=== PATIENT | female | born 1955 | race Caucasian/White ===

== ENCOUNTER 2023-09-23 22:23 | Inpatient (IN) | payer OTHER, SELFPAY ==
[2023-09-23 18:09] VITALS: BP 157/77
--- NOTE | 2023-09-23 18:57 | ED.GENMED ---
History of Present Illness
<BRENT Billy - Last Filed: 09/23/23 21:46>
General
Chief Complaint: Skin Problem
Source: patient and family
Exam Limitations: none
Time Seen by Provider: 09/23/23 18:33
Nursing documentation reviewed up to this point in time: agreed with
Travel History
Have you had any contact with someone who has COVID-19?: No
Do you have any symptoms of coronavirus? Fever > 100 degrees, chills, cough, shortness of breath, sore throat, loss of taste or smell, muscle aches, or headache?: No
History of Present Illness
History of Present Illness:
Patient is a 5-year-old female who presents to the ER for evaluation. Patient had a cyst removed from her right lower back on Sunday by her family physician was started on amoxicillin. Yesterday sister noticed redness to the right back and also
today noticed redness to her abdomen. Patient does not feel well she feels achy and feverish so she has not taken her temperature. She also complains of a lot of pain in the tailbone region. Rash is not itchy. She denies any difficulty breathing.
Past History
<BRENT Billy - Last Filed: 09/23/23 21:46>
Past History
ED Past Medical History: GERD and Other (Peptic ulcer disease, colonic AVMs)
ED Past Surgical History: Gynecological and Tonsilectomy
Social History
Tobacco: Non-smoker
Alcohol: Occasional
Drug: None
Personal:
Living: with family
Employment: Retired
Family History
Family History: Other (Noncontributory)
Review of Systems
<BRENT Billy - Last Filed: 09/23/23 21:46>
Review of Systems
Allergies reviewed?: Yes
All Other Systems: ROS reviewed and negative except as documented in HPI and ROS
Constitutional: Reports chills
EENT: Reports no symptoms
Respiratory: Reports no symptoms
ABD/GI: Reports no symptoms
: Reports no symptoms
Skin: Reports rash
Neurological: Reports no symptoms
Hematologic/Lymphatic: Reports no symptoms
Psychiatric: Reports no symptoms
Phy Exam
<BRENT Billy - Last Filed: 09/23/23 21:46>
General Physical Exam
General Presentation: no apparent distress
General age: appears stated age
General Skin: warm and dry
General Habitus: normal
General Mental: alert
General Hydration: appears well hydrated
Neurological Exam
Neurological Exam: alert and oriented x3
Musculoskeletal Exam
Musculoskeletal Exam: full ROM
Skin Exam
Skin Exam: normal color, warm/dry and other (Patient with area of redness/mild induration to right lower back near recent cyst removal region no fluctuance no drainage however in addition scattered rash to abdomen and groin legs and also back which
is more consistent with drug rash,)
Psychiatric Exam
Psychiatric Exam: normal mood/affect and agitated
Course
<BRENT Billy - Last Filed: 09/23/23 21:46>
Orders/Labs/Results
Orders:
Orders
09/23/23 18:55
Cardiac Monitoring- Treatment ONCE
IV Insert/Care/Rem.- Treatment PRN
Diphenhydramine [Benadryl] 25 mg IV NOW STA
09/23/23 18:56
Ketorolac [Toradol] 15 mg IV NOW STA
09/23/23 19:04
Complete Blood Count/With Diff Urgent
Comprehensive Metabolic Panel Urgent
Lactic Acid Q4H
Comment: CANCEL 2nd LACTIC ACID IF 1st LACTIC ACID IS LESS THAN 2
09/23/23 19:14
Blood Culture Q30M
MAXIMILIAN Source: Blood/Venous
Specimen Description:
Blood Culture Q30M
MAXIMILIAN Source: Blood/Venous
Specimen Description:
09/23/23 19:19
0.9% Sodium Chloride 1000 ml [Nss] 1,000 ml IV BOLUS
Abnormal Lab Results
09/23/23
19:04
WBC 12.7 H 10^3/uL
(4.8-10.8)
MCHC 32.8 L g/dL
(33.0-37.0)
Abs Immat Gran (auto) 0.1 H 10^3/uL
(0-0.05)
Absolute Neuts (auto) 11.3 H 10^3/uL
(1.4-6.5)
Absolute Lymphs (auto) 0.5 L 10^3/uL
(1.2-3.4)
Neutrophils % 88.9 H %
(42.2-75.2)
Lymphocytes % 4.2 L %
(20.5-51.1)
BUN 22 H mg/dl
(7-17)
Creatinine 1.1 H mg/dL
(0.6-1.0)
Glucose 104 H mg/dl
(70-99)
09/23/23 19:04
09/23/23 19:04
Vital Signs
Initial and Last Documented VS:
Initial Vital Signs
Temp Pulse Resp BP Pulse Ox
99.9 F 80 18 157/77 93
09/23/23 18:09 09/23/23 18:09 09/23/23 18:09 09/23/23 18:09 09/23/23 18:09
Last Documented Vital Signs
Temp Pulse Resp BP Pulse Ox
99.9 F 77 20 122/68 93
09/23/23 18:09 09/23/23 20:00 09/23/23 20:00 09/23/23 19:15 09/23/23 20:00
<Pola Nicholas, DO - Last Filed: 09/23/23 19:00>
Orders/Labs/Results
Orders:
Orders
09/23/23 18:55
Cardiac Monitoring- Treatment ONCE
IV Insert/Care/Rem.- Treatment PRN
Diphenhydramine [Benadryl] 25 mg IV NOW STA
09/23/23 18:56
Ketorolac [Toradol] 15 mg IV NOW STA
09/23/23 19:04
Complete Blood Count/With Diff Urgent
Comprehensive Metabolic Panel Urgent
Lactic Acid Q4H
Comment: CANCEL 2nd LACTIC ACID IF 1st LACTIC ACID IS LESS THAN 2
09/23/23 19:14
Blood Culture Q30M
MAXIMILIAN Source: Blood/Venous
Specimen Description:
Blood Culture Q30M
MAXIMILIAN Source: Blood/Venous
Specimen Description:
09/23/23 19:19
0.9% Sodium Chloride 1000 ml [Nss] 1,000 ml IV BOLUS
Abnormal Lab Results
09/23/23
19:04
WBC 12.7 H 10^3/uL
(4.8-10.8)
MCHC 32.8 L g/dL
(33.0-37.0)
Abs Immat Gran (auto) 0.1 H 10^3/uL
(0-0.05)
Absolute Neuts (auto) 11.3 H 10^3/uL
(1.4-6.5)
Absolute Lymphs (auto) 0.5 L 10^3/uL
(1.2-3.4)
Neutrophils % 88.9 H %
(42.2-75.2)
Lymphocytes % 4.2 L %
(20.5-51.1)
BUN 22 H mg/dl
(7-17)
Creatinine 1.1 H mg/dL
(0.6-1.0)
Glucose 104 H mg/dl
(70-99)
09/23/23 19:04
09/23/23 19:04
Vital Signs
Initial and Last Documented VS:
Initial Vital Signs
Temp Pulse Resp BP Pulse Ox
99.9 F 80 18 157/77 93
09/23/23 18:09 09/23/23 18:09 09/23/23 18:09 09/23/23 18:09 09/23/23 18:09
Last Documented Vital Signs
Temp Pulse Resp BP Pulse Ox
99.9 F 77 20 122/68 93
09/23/23 18:09 09/23/23 20:00 09/23/23 20:00 09/23/23 19:15 09/23/23 20:00
<BRENT Billy - Last Filed: 09/23/23 21:46>
MDM/Problems Addressed
Differential Diagnosis Includes:
not limited to:cellulitis , allergic reaction
MDM/Problems Addressed:
Patient is a 5-year-old female who had a cyst excised from her right lower back on Sunday 6 days ago was placed on amoxicillin however sister noticed redness to the right lower back region yesterday and also redness to her abdomen. Patient presents
with area of induration and redness around the cyst removal however this area is very warm to palpation and in addition there is scattered rash throughout abdomen and groin legs which appears more drug related. Patient does have the chills myalgia
she also has complain tailbone pain. Case reviewed with ED physician evaluate patient will check labs.
2140: White blood cell count minimally elevated with looks of redness around recent abscess removal along with reaction to amoxicillin rash will admit we will treat with ancef .
<BRENT Billy - Last Filed: 09/23/23 21:46>
*Critical Care Note
Total Time (30-74mins, 75-104mins- exclusive of procedures): Not Applicable
ED Attending Note
<BRENT Billy - Last Filed: 09/23/23 21:46>
-
Portions of this chart may have been created with voice recognition software.� Occasional wrong word or��sound alike� substitutions may have occurred due to the inherent limitations of voice recognition software.
<Pola Nicholas DO - Last Filed: 09/23/23 19:00>
ED Attending Note
Patient seen and examined by attending physician: Yes
I performed the substantive portion of visit, reviewed & personally made and approve the management plan that is documented in note by myself or KARLOS.: Yes
ED Attending Note:
I have seen and evaluated the patient with a [id number] encounter. I have spoken to the advance practicer provider and involved in the medical history, the physical exam, medical decision making.
Evaluation and management service: agree unless noted differently below.
Results interpretation: agree unless noted differently below.
Focused HPI: 68-year-old female presenting with redness to her back worsening rash. Patient recent cyst removed and was placed on amoxicillin.
Physical exam: Significant amount of erythema surrounding right back where cyst was removed. Maculopapular rash in trunk and proximal extremities
Medical Decision Making: Discussed possible dress syndrome versus adverse medication reaction. Given the confluent erythema around the area, low threshold to admit for antibiotic
Discharge Plan
Departure
Patient Disposition: Admit
Date of Disposition: 09/23/23
Time of Disposition: 21:44
Admit to: Med/Surg
Admit to doctor: JENNIFERY
Presentation/result/management discussed w/ accepting MD/DO: Hospitalist
Patient with high blood pressure during this ER visit?: Yes
Condition: Fair
Covid-19: Not Applicable
Discharge Problem:
Cellulitis, Allergic reaction
Prescriptions:
No Action
pantoprazole 40 MG tablet,delayed release (DR/EC)
40 mg PO BID 30 Days Qty: 60 0RF
ferrous sulfate [FeroSul] 325 MG tablet
325 mg PO BID 30 Days Qty: 60 0RF
docusate sodium 100 MG capsule
100 mg PO BID 30 Days Qty: 60 0RF
Referrals:
Shantal Mills CRNP [Family Provider] -
Interventions
Interventions:
*Risk Screen - Suicide Last Done: 09/23/23 18:13
*General Assessment Last Done: 09/23/23 18:13
*Neglect/Abuse Screening Last Done: 09/23/23 18:13
*ED COVID-19 Vaccine History Last Done: 09/23/23 19:23
Discharge Date and Time
Print Language: FRISIAN
[2023-09-23] MEDS: TORADOL 15 MG IV (19:08)
[2023-09-23] MEDS: BENADRYL 25 MG IV (19:09)
[2023-09-23 19:13] LABS: % Basophils 0.2 % (0-2); % Eosinophils 3.1 % (0-6); % Immature Granulocytes 0.4 % (0-0.5); % Lymphocytes 4.2 % (20.5-51.1); % Monocytes 3.2 % (1.7-9.3); % Neutrophils 88.9 % (42.2-75.2); Absolute Eosinophils 0.4 10^3/uL (0-0.7); Absolute Immature Granulocytes 0.1 10^3/uL (0-0.05); Absolute Lymphocytes 0.5 10^3/uL (1.2-3.4); Absolute Monocytes 0.4 10^3/uL (0.1-0.6); Absolute Neutrophils 11.3 10^3/uL (1.4-6.5); Hemoglobin 13.1 g/dL (12.0-16.0); Mean Corp Hgb Conc. 32.8 g/dL (33.0-37.0); Mean Corpuscular Hgb 27.2 pg (27.0-31.0); Mean Corpuscular Volume 83.2 fL (81.0-99.0); Mean Platelet Volume 9.6 fL (7.4-10.4); Nucleated Red Blood Cells % 0 %; Platelet Count 192 10^3/uL (130-400); Red Blood Cell Count 4.81 10^6/uL (4.20-5.40); White Blood Cell Count 12.7 10^3/uL (4.8-10.8)
[2023-09-23 19:15] VITALS: BP 122/68
[2023-09-23 19:24] LABS: ALT (SGPT) 15 U/L (0-35); AST (SGOT) 18 U/L (14-36); Albumin 3.6 g/dl (3.5-5.0); Alkaline Phosphatase 78 U/L (38-126); Blood Urea Nitrogen 22 mg/dl (7-17); Calcium 9.2 mg/dl (8.4-10.2); Carbon Dioxide 26 mmol/L (22-30); Chloride 100 mmol/L (98-107); Glucose 104 mg/dl (70-99); Potassium 4.1 mmol/L (3.5-5.1); Sodium 135 mmol/L (135-145); Total Bilirubin 0.8 mg/dl (0.2-1.3); Total Protein 6.8 g/dl (6.3-8.2); eGFR 54.06
[2023-09-23 19:28] LABS: Lactic Acid 1.1 mmol/L (0.7-2.0)
[2023-09-23] MEDS: NSS 1000 IV (20:15)
[2023-09-23 21:00] VITALS: BP 110/53
--- NOTE | 2023-09-23 21:59 | HPS.HSE ---
Family Physician
-
Family Physician: BRENT Menon
Chief Complaint
-
evaluation of post surgical site of R Lower back
History of Present Illness
68F Non diabetic seen at ER for evaluation of post surgical site of R Lower back
- s/p cyst removal of Rt Lower back on 09/17/23
- seen by PCP and started on PO Amoxicillin
- Yesterday sister noticed redness to the right back and also today noticed redness to her abdomen.
- Denied pruritus
- She felt feverish but did not cjeck the Temp
- T 99.9 at ER
Medical History
Past Medical History
Past Medical History: Reports GERD and Other (PUDz )
Past Surgical History: Reports Other (cyst removed from her right lower back on 09/17/23 )
Social History
Tobacco: Non-smoker
Alcohol: Occasional
Personal:
Living: With Family
Family History
Family History: Not pertinent
Allergies / Home Medications
Allergies reflects when Allergies were last updated in [facility].
Home Medications with original date entered in [facility]
Allergy/Medication List:
Allergies
Allergy/AdvReac Type Severity Reaction Status Date / Time
No Known Allergies Allergy Verified 09/23/23 18:09
Home Medications
docusate sodium 100 mg capsule 100 mg PO BID 30 days ##60 02/02/18
ferrous sulfate 325 mg (65 mg iron) tablet (FeroSul) 325 mg PO BID 30 days ##60 02/02/18
pantoprazole 40 mg tablet,delayed release 40 mg PO BID 30 days #60 tabs 02/02/18
Review of Systems
-
Constitutional: Reports No Symptoms
EENT: Reports No Symptoms
Respiratory: Reports No Symptoms
Cardiac: Reports No Symptoms
Abdomen/GI: Reports No Symptoms
: Reports No Symptoms
Musculoskeletal: Reports No Symptoms
Skin: Reports See HPI and Rash (R lower back ); Denies Itching
Neurological: Reports No Symptoms
Endocrine: Reports No Symptoms
Hematologic/Lymphatic: Reports No Symptoms
Psych: Reports No Symptoms
Physical Exam
Vital Signs
Vital Signs
Temp Pulse Resp BP Pulse Ox
99.9 F 69 23 110/53 94
09/23/23 18:09 09/23/23 21:45 09/23/23 21:45 09/23/23 21:00 09/23/23 21:45
Physical Exam
General: No Apparent Distress, Comfortable and Conversant; No Chills
HEENT: NormoCephalic, Anicteric and Moist mucous membranes
Cardiac: S1/S2 and Regular Rhythm; No Tachycardia
Breast: Deferred by me
GI: Soft, Non Tender, Non Distended and Normal Bowel Sounds
Rectal: Deferred by Provider
Genito-urinary: Deferred by me
Musculoskeletal: No Edema
Skin: Other (Erytema and mild nduration to Rt lower back near recent cyst removal region Not fluctuance No drainage . Scattered rash to abdomen and groin legs and also back )
Neuro: AO x 3
Psych: Calm
Laboratory Results
-
09/23/23 19:04
09/23/23 19:04
Laboratory Results
Lactic Acid Cancelled 09/23/23 23:00
Total Bilirubin 0.8 mg/dl (0.2-1.3) 09/23/23 19:04
AST 18 U/L (14-36) 09/23/23 19:04
ALT 15 U/L (0-35) 09/23/23 19:04
Alkaline Phosphatase 78 U/L (38-126) 09/23/23 19:04
Data Reviewed
-
Lab Data: Labs Reviewed by me
Impression/Plan
-
Reviewed VS: 99.9 otherwise unremarkable POx 93 on RA
Data
WCC 12.7
Cr 1.1 - baseline 1.1
eGFR 54
BCx 2 sent
No Prior DH admission:
ASSESSMENT & PLAN
Pending Rx reconciliation
Probably acute drug eruption to amoxicillin causing scattered symmetric non pruritic urticaria rash to both abdomen plus bilateral groin adn proximal thighs and lower back
- associated Leukemoid reaction plus low grade fever
- DC Amoxicillin and ad to allergy list
- IV Benadryl PRN
I doubt SSTI of Rt lower back surgical site s/p removal cyst removal on 09/17/23
- BCx sent
- Empiric IV Vancomycin in place of Cefazolin in case cross sensitivity reaction to Cephalosporins and PCN till further eval by ID
- ID Consult
Underlying CKD3a
- stable Cr at 1.1
- Observe Cr
DVT Px: LMWH
Code: Full
IP MS
[2023-09-23 22:00] VITALS: BP 112/53
[2023-09-23] MEDS: VANCOCIN 200 IV ×2 (22:24→23:50)
[2023-09-23 23:08] VITALS: BP 107/56
--- NOTE | 2023-09-23 23:15 | PTCARENOTE ---
Received pt from ED into room 2136. Patient able to ambulate to bed. AAOx3. VSS. 3L O2 pox 93%. See assessment. Resting comfortably in bed, no complaints at this time.
[2023-09-23 23:36] VITALS: BMI 44.9
[2023-09-23 23:39] VITALS: BMI 44.9
--- NOTE | 2023-09-23 23:44 | PHA.VAN.IN ---
Assessment
- Assessment
Renal Function: Appears similar to baseline
Plan
- Plan
Initial / Loading Dose: SPLIT LOAD VANCO 2000MG
Monitoring: RANDOM 09/23 @0600
Pharmacokinetics Vancomycin I
- -
Patient Age: 68
Patient Sex: Female
Vancomycin Day #: 1
Indication: SSTI
Requesting Provider: DR. WRIGHT
Height / Weight:
Height 5 ft 4 in
Actual Weight 118.524 kg
IBW in k.7
Adjusted BW in k.2
Pertinent Past Medical History: POST OP R LOWER BACK CYST REMOVAL 09/17/23, OBESITY
- Vital Signs / Lab Results
Temp Pulse Resp BP Pulse Ox
98.2 F 69 20 107/56 93
09/23/23 23:08 09/23/23 23:08 09/23/23 23:08 09/23/23 23:08 09/23/23 23:08
Lab Results - Hematology
09/23/23
19:04
WBC 12.7 H
Lab Results - Chemistry
09/23/23
19:04
BUN 22 H
Creatinine 1.1 H
Albumin 3.6
09/23/23 09/23/23
19:04 23:00
Lactic Acid 1.1 Cancelled
[2023-09-24] MEDS: PROTONIX 40 MG PO (08:21)
[2023-09-24] MEDS: PEPCID 20 MG PO (08:21)
[2023-09-24 08:29] VITALS: BP 98/56
[2023-09-24 09:06] LABS: % Basophils 0.3 % (0-2); % Eosinophils 7.3 % (0-6); % Immature Granulocytes 0.4 % (0-0.5); % Lymphocytes 9.2 % (20.5-51.1); % Monocytes 4.8 % (1.7-9.3); Absolute Eosinophils 0.7 10^3/uL (0-0.7); Absolute Lymphocytes 0.9 10^3/uL (1.2-3.4); Absolute Monocytes 0.5 10^3/uL (0.1-0.6); Absolute Neutrophils 7.5 10^3/uL (1.4-6.5); Hematocrit 40.7 % (37.0-47.0); Hemoglobin 12.3 g/dL (12.0-16.0); Mean Corp Hgb Conc. 30.2 g/dL (33.0-37.0); Mean Corpuscular Hgb 26.6 pg (27.0-31.0); Mean Corpuscular Volume 88.1 fL (81.0-99.0); Mean Platelet Volume 10.2 fL (7.4-10.4); Nucleated Red Blood Cells % 0 %; Platelet Count 182 10^3/uL (130-400); Red Blood Cell Count 4.62 10^6/uL (4.20-5.40); Red Cell Dist. Width 14.2 % (11.5-14.5); White Blood Cell Count 9.6 10^3/uL (4.8-10.8)
--- NOTE | 2023-09-24 09:11 | CON.ID ---
Consultation
-
Date/Time Consultation Requested: September 23, 2023 2891
Date/Time Consultation Performed: September 24, 2023 0910
Requesting Provider: Dr. Lion Blanc
Performing Provider: Dr. Jayne Haque
Reason for Consultation: Likely acute drug eruption then STI
Chief Complaint / Past History
Chief Complaint
Rash.
History of Present Illness
68-year-old female without significant past medical history who recently underwent drainage of an epidermal cyst located on her right lower back by per PCP on September 17, 2023. She was placed on amoxicillin postprocedure to complete 12 days. On
September 21, she noted rash on her abdomen. Her sister noted rash on her back. Rash extended down to her thighs. Positive itching. Had low-grade temps. She came to the hospital yesterday. She received cefazolin in the ER then placed on IV
vancomycin. Patient reports she cannot recall ever having had penicillin in the past. She feels improved today. Itching is better. The rash is not worse.
Past History
Additional Past Medical History:
PUD
GERD
Class III obesity BMI 45
Allergy History:
No Known Allergies Allergy (Verified 09/23/23 18:09)
Medications Reviewed: Yes
Current Antibiotics:
Vancomycin
Social History
Tobacco: Non-Smoker
Alcohol: None
Drug: None
Family History
Family History: Not Pertinent
Review of Systems
Review of Systems
General: Negative Change in Appetite
HEENT: Negative Sinus Problems or Headache
Cardiovascular: Negative Chest Pain or Dyspnea
Respiratory: Negative Dyspnea or Cough
Gasteroenterology: Other (no diarrhea); Negative Nausea or Vomiting
Genital / Urological: Negative Dysuria or Flank Pain
Endocrine: Negative Weakness
Skin / Hair / Nails: Rash
Neurological: Negative Headache or Dizziness
All systems: All other systems were reviewed and were negative
Vital Signs
Temp Pulse Resp BP Pulse Ox
98.2 F 69 20 107/56 92
09/23/23 23:08 09/23/23 23:08 09/23/23 23:08 09/23/23 23:08 09/24/23 08:29
Physical Exam
Physical Exam
Constitutional: No Acute Distress
Eyes: No Conjunctival Hemorrhage and Sclera Anicteric
Cardiovascular: Regular Rate and S1/S2
Gastrointestinal: Soft, Non Tender, Non Distended and Normal Bowel Sounds
Genito-Urinary: Negative CVA Tenderness
Skin: Rash (Diffuse blanchable maculopapular rash lower back, abdomen to bilateral upper thighs)
Wound: Other (right lower back cyst without drainage, nontender, no warmth)
Lab / Diagnostic Study Results
Abs Immat Gran (auto) 0.1 10^3/uL (0-0.05) H 09/23/23 19:04
Absolute Neuts (auto) 11.3 10^3/uL (1.4-6.5) H 09/23/23 19:04
Absolute Lymphs (auto) 0.5 10^3/uL (1.2-3.4) L 09/23/23 19:04
Absolute Monos (auto) 0.4 10^3/uL (0.1-0.6) 09/23/23 19:04
Absolute Basos (auto) 0.0 10^3/uL (0-0.2) 09/23/23 19:04
Immature Gran % 0.4 % (0-0.5) 09/23/23 19:04
Neutrophils % 88.9 % (42.2-75.2) H 09/23/23 19:04
Lymphocytes % 4.2 % (20.5-51.1) L 09/23/23 19:04
Monocytes % 3.2 % (1.7-9.3) 09/23/23 19:04
Eosinophils % 3.1 % (0-6) 09/23/23 19:04
Basophils % 0.2 % (0-2) 09/23/23 19:04
Lactic Acid Cancelled 09/23/23 23:00
Microbiology Results
Micro:
09/23/23 19:14 Blood Culture - Pending
Blood/Venous
09/23/23 19:14 Blood Culture - Pending
Blood/Venous
09/23/23 23:38 MRSA Screen - Pending
Nose
Assessment / Plan
# Drug rash from amoxicillin
- Supportive care.
# Recent s/p drainage of epidermal cyst.
- No signs of infection.
- DC Vancomycin.
- Observe off abx.
Care Review
Plan reviewed with: Physician (Dr. Cecilio Jensen)
[2023-09-24 09:18] LABS: Blood Urea Nitrogen 22 mg/dl (7-17); Calcium 8.5 mg/dl (8.4-10.2); Carbon Dioxide 27 mmol/L (22-30); Chloride 104 mmol/L (98-107); Estimated Creatinine Clearance 74 ml/min; Glucose 83 mg/dl (70-99); Potassium 4.2 mmol/L (3.5-5.1); Sodium 139 mmol/L (135-145); eGFR > 60.00
[2023-09-24 09:21] LABS: Vancomycin Random 14.4 ug/ml
--- NOTE | 2023-09-24 10:52 | W.PN.HOSP.TC ---
Today's Communication/Plan
-
Monitor vital signs see plan
Supportive care for rash, as needed Benadryl
Observe off antibiotics
Spoke with ID, can be discharged from their standpoint
Discharge today
Time of discharge 36 minutes
Assessment / Plan
Assessment / Plan
General: No Apparent Distress, Comfortable and Conversant; No Chills
HEENT: NormoCephalic, Anicteric and Moist mucous membranes
Cardiac: S1/S2 and Regular Rhythm; No Tachycardia
GI: Soft, Non Tender, Non Distended and Normal Bowel Sounds
Musculoskeletal: No Edema
Skin: Other (Erytema and mild nduration to Rt lower back near recent cyst removal region Not fluctuance); scattered rash
Neuro: AO x 3
Psych: Calm
Rash likely 2/2 amoxicillin.
cw supportive care
scattered symmetric non pruritic urticaria rash to both abdomen plus bilateral groin adn proximal thighs and lower back
- associated Leukemoid reaction plus low grade fever
now leukocytosis improved. Blood culture drawn in ED notes pending. Spoke with infectious disease no further antibiotics needed. Patient can be discharged from ID standpoint
- DC Amoxicillin and ad to allergy list
- IV Benadryl PRN
no signs of surgical epidermal cyst removal infection
ID dc'ed vanc
Underlying CKD3a
- stable Cr
- Observe Cr
DVT Px: LMWH
Code: Full
Anticipated Discharge: Today
Subjective/Interval History
-
Date of Service: September 24, 2023
denies pain
Objective Data
-
Labs:
Laboratory Results
09/24/23 09/24/23
07:58 08:00
WBC 9.6
Hgb 12.3
Hct 40.7
Plt Count 182
Sodium 139
Potassium 4.2
Chloride 104
Carbon Dioxide 27
BUN 22 H
Creatinine 0.9
Glucose 83
Calcium 8.5
Vital Signs:
Vital Signs
Temp Pulse Resp BP Pulse Ox
98.2 F 69 20 107/56 92
09/23/23 23:08 09/23/23 23:08 09/23/23 23:08 09/23/23 23:08 09/24/23 08:29
I&O
09/23/23 09/24/23 09/25/23
06:59 06:59 06:59
Intake Total 0 / 0
Balance 0 / 0
--- NOTE | 2023-09-24 10:56 | W.DCSUMMARY ---
Discharge Summary
Discharge Data
Date of Admission: 09/23/23
Date of Discharge: 09/24/23
-
Pending Results: No
Hospital Course
68-year-old female with recent epidermal cyst drainage came to the hospital with diffuse drug rash which was likely thought was secondary to amoxicillin. Patient was monitored overnight and was treated with famotidine and Benadryl. Patient was
also seen by infectious disease who did not thought patient had any underlying infection and was okay to discontinue antibiotics. Initially patient did had mild elevated white count admission which was likely thought was associated leukoma
reaction. Infectious disease did not recommended any antibiotics on discharge. Since patient symptoms improved, she was then discharged home with instructions to follow-up with all her physicians outpatient.
Discharge Plan
-
Patient Disposition: Home (Routine Discharge)
Discharge Diagnosis/Procedures: Drug rash from amoxicillin
Condition: Fair
Diet: As tolerated
Activity: As tolerated
Driving Restrictions: As prior to admission
Bathing Restrictions: None
Referrals:
Shantal Mills CRNP [Family Provider] - in less than 1 week
Prescriptions:
New
acetaminophen 325 mg Tablet
650 mg PO Q4HPRN PRN (Reason: mild pain/PORTER/temp> 100.4F) Qty: 0 0RF
famotidine 20 mg Tablet
20 mg PO DAILY Qty: 7 0RF
diphenhydramine HCl [Benadryl] 25 mg capsule
25 mg PO TID PRN (Reason: allergic reaction) Qty: 20 0RF
Continued
pantoprazole 40 MG tablet,delayed release (DR/EC)
40 mg PO BID 30 Days Qty: 60 0RF
ferrous sulfate [FeroSul] 325 MG tablet
325 mg PO BID 30 Days Qty: 60 0RF
docusate sodium 100 MG capsule
100 mg PO BID 30 Days Qty: 60 0RF
Discharge Orders:
Discharge Patient (As Directed); Ordered 09/24/23
Ordered By: Cecilio Jensen
Discharge Date and Time
Discharge Date/Time: 09/24/23 12:04
Print Language: MALAYSIAN
--- NOTE | 2023-09-24 11:41 | CM ---
Met with patient at bedside; initial assessment completed
[facility] IMM benefit explained; form signed @ [id number]
Pharmacy verified: [facility] [place] [facility]
Patient lives in a multilevel home; 7 steps to enter (no railing); 12-13 steps between floors (railings present); 2nd floor bath has tub w/shower
PLOF: patient reported that she is independent with ambulation, stairs, and ADLs; drives; no DME
Transportation: Son will provide ride home
SNF/Rehab/Home Health utilization history: none
Plan: Discharge to home today; no services needed
== END 2023-09-24 12:04 | disposition home or self-care (01) | DRG 607 ==
LOC: 2 NORTH 22:23
PROVIDERS: Nurse Practitioner; ADMITTING PHYSICIAN Internal Medicine; ATTENDING PHYSICIAN Internal Medicine; CONSULT PHYSICIAN Internal Medicine Infectious Disease; EMERGENCY PHYSICIAN Student in an Organized Health Care Education/Training Program; FAMILY PHYSICIAN Nurse Practitioner Family
DX: L27.0 Generalized skin eruption due to drugs and medicaments taken internally (principal); Z68.42 Body mass index [BMI] 45.0-49.9, adult; R50.9 Fever, unspecified; K21.9 Gastro-esophageal reflux disease without esophagitis; N18.31 Chronic kidney disease, stage 3a; E66.01 Morbid (severe) obesity due to excess calories; D72.823 Leukemoid reaction; T36.0X5A Adverse effect of penicillins, initial encounter; Y92.9 Unspecified place or not applicable; Z87.11 Personal history of peptic ulcer disease
CPT/HCPCS: 80048; 80053; 80202; 83605; 85025; 87040; 87070; 96361; 96374; 96375; 99285

== ENCOUNTER → 2023-09-24 14:05 | Outpatient (REF) | payer OTHER, SELFPAY | LOC: HWRAD 14:05 | PROVIDERS: ATTENDING PHYSICIAN Nurse Practitioner Family | DX: M67.432 Ganglion, left wrist (principal) | CPT/HCPCS: 76882 ==

== ENCOUNTER → 2023-12-26 11:22 | Outpatient (REF) | payer OTHER, SELFPAY | LOC: HWRAD 11:22 | PROVIDERS: ATTENDING PHYSICIAN Nurse Practitioner Family | DX: Z78.0 Asymptomatic menopausal state (principal) | CPT/HCPCS: 77080 ==